=== PATIENT | female | born 2005 | race Hispanic/Latino ===

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

== ENCOUNTER 2024-07-01 23:59 | Emergency (ER) | payer BC, MEDICAID ==
[~2024-07-01] VITALS: Ht 154.9 cm; Wt 62.1 kg
[2024-07-02 00:01] VITALS: TEMP 97.9
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
[2024-07-02 00:20] VITALS: BP 113/72; PULSE 67; RESP 15; O2SAT 97
[2024-07-02] MEDS: LIDOCAINE HCL 2% VISCOUS 15 ML UDCUP PO ONE (00:28)
--- NOTE | 2024-07-02 00:28 | NUR ---
LIDOCAIE APPLIED VIA TOPICAL ROUTE
== END 2024-07-02 00:36 | disposition home or self-care (01) ==
LOC: EDH 23:59
DX: S69.91XA Unspecified injury of right wrist, hand and finger(s), initial encounter (principal); M79.642 Pain in left hand; Z88.0 Allergy status to penicillin; W08.XXXA Fall from other furniture, initial encounter; Y93.89 Activity, other specified; Y92.89 Other specified places as the place of occurrence of the external cause; Y99.8 Other external cause status
CPT/HCPCS: 99282